=== PATIENT | male | born 1980 | race Caucasian/White ===

== ENCOUNTER 2017-03-14 16:23 | Inpatient (IN) | payer OTHER ==
[~2017-03-14] VITALS: Ht 185.4 cm; Wt 92.1 kg
--- NOTE | ~2017-03-14 | EEG ---
[facility] [place] [address] ELECTROENCEPHALOGRAM Name: DILAN UGARTE Room #: 432-P [facility] IN .R.#: [id number] Admission: 03/14/17 Attend Phys: Arash Valenzuela DO Discharge: 03/16/17 Date of : 84 Report #: [id number] THIS REPORT FOR: //name// CC: FAM unknown Arash Valenzuela Pavan Matson The patient is a 36-year-old male with a history of seizures and pseudoseizures. An EEG is requested for further evaluation. DESCRIPTION: The awake record demonstrates a well-developed, moderately amplitude 10 Hz posterior dominant rhythm that attenuates with eye opening. During the recording, there were bursts of poorly formed high amplitude 2-3 cycles per second activity noted. However, during some of these bursts, the posterior dominant rhythm was visible. Photic stimulation was nonactivating. Stage I sleep was characterized by attenuation of the background record. No focal abnormalities were noted. IMPRESSION: Clinically indicated this record may be consistent with a generalized type seizure disorder. There is no evidence of subclinical seizures on the recording today. No focal abnormalities are noted. Clinical correlation is advised. <ELECTRONICALLY SIGNED> By: Gabi Fuller DO 03/27/17 1151 [id number] 1702 Gabi Fuller DO /nt
--- NOTE | ~2017-03-14 | EKG ---
[address] [place] [address] ELECTROCARDIOGRAM REPORT Name: DILAN UGARTE Room #: 432-P [facility] IN M.R.#: [id number] Admission: 03/14/17 Attend Phys: Arash Valenzuela DO Discharge: 03/16/17 Date of : 84 Report #: [id number] THIS REPORT FOR: //name// [facility] Test Date: 2017-03-16 Test Time: 13:28:09 Pat Name: DILAN UGARTE Department: Room: 432 Gender: M Exchange Engineer: Tariq FAULKNER : 1980 Requested By: Christiane Strange Order Number: [id number] MD: Atif Flores Measurements Intervals [place] Rate: 115 P: 56 [place]: 135 QRS: 44 QRSD: 76 T: 5 QT: 310 QTc: 429 Interpretive Statements Sinus tachycardia Low voltage, precordial leads Borderline T wave abnormalities Compared to ECG 12/28/2014 22:36:01 Low QRS voltage now present T-wave abnormality now present Sinus rhythm no longer present Sinus arrhythmia no longer present Electronically Signed On 03-16-2017 22:29:49 [employer] MACHINE OPERATOR by Atif Flores [email or web address] <ELECTRONICALLY SIGNED> By: Atif Flores MD 03/16/17 2229 [id number] 1328 Atif Flores MD /EPI
[2017-03-14 18:30] VITALS: BP 133/88
[2017-03-14 20:26] VITALS: BP 134/76
[2017-03-15 03:22] VITALS: BP 121/76
[2017-03-15 05:13] VITALS: BP 130/83
[2017-03-15 06:15] LABS: CREATININE 1.1 mg/dL (0.7-1.3); MAGNESIUM 1.8 mg/dL (1.8-2.4); POTASSIUM 4.1 mmol/L (3.5-5.1)
[2017-03-15 06:33] LABS: ABSOLUTE NEUTROPHILS 3.6 thou/uL (1.4-8.2); BASOPHILS 0.5 % (0.0-2.0); EOSINOPHILS 4.9 % (0.0-3.0); HEMATOCRIT 44.5 % (42.0-52.0); HEMOGLOBIN 15.4 gm/dL (14.0-18.0); LYMPHOCYTES 25.5 % (24.0-44.0); MCH 31.9 pg (26.0-34.0); MCHC 34.5 g/dL (28.0-37.0); MCV 92.5 fL (80.0-100.0); MONOCYTES 8.7 % (1.0-8.0); PLATELET COUNT 220 thou/uL (150-400); POLYS 60.4 % (36.0-66.0); RBC 4.81 mil/uL (4.50-6.00); RDW 13.3 % (10.5-14.5)
[2017-03-15 08:00] VITALS: BP 110/75
[2017-03-15] MEDS ORDERED: BUSPIRONE HCL10 MG PO (09:39)
[2017-03-15] MEDS ORDERED: KEPPRA 500 MG500 M1 PO (09:39)
[2017-03-15] MEDS ORDERED: VIMPAT100 MG PO (09:39)
[2017-03-15 16:40] VITALS: BP 123/84
[2017-03-15 19:56] VITALS: BP 117/82
[2017-03-16 05:52] VITALS: BP 120/82
[2017-03-16 07:20] VITALS: BP 126/84
[2017-03-16] MEDS ORDERED: ATIVAN0.5 MG PO (13:52)
[2017-03-16 14:31] VITALS: BP 126/84
== END 2017-03-16 15:00 | DRG 101 ==
LOC: 4E 16:23
PROVIDERS: Nurse Practitioner
DX: G40.909 Epilepsy, unspecified, not intractable, without status epilepticus (principal); I10 Essential (primary) hypertension; F41.9 Anxiety disorder, unspecified; G62.9 Polyneuropathy, unspecified; F17.210 Nicotine dependence, cigarettes, uncomplicated; Z88.8 Allergy status to other drugs, medicaments and biological substances; Z71.6 Tobacco abuse counseling
CPT/HCPCS: 10783

== ENCOUNTER 2017-03-24 23:24 | Emergency (ER) | payer OTHER ==
[~2017-03-24] VITALS: Ht 185.4 cm; Wt 83.9 kg
[~2017-03-24 23:24] MED LIST: ATIVAN0.5 MG PO; BUSPIRONE HCL10 MG PO; KEPPRA 500 MG500 M1 PO; VIMPAT100 MG PO
[2017-03-24 23:26] VITALS: BP 133/94
== END 2017-03-24 23:55 | disposition left against medical advice (07) ==
LOC: ER 23:24
DX: Z53.21 Procedure and treatment not carried out due to patient leaving prior to being seen by health care provider (principal)